=== PATIENT | male | born 1965 | race Two or more races ===

== ENCOUNTER 2024-05-13 14:30 | Outpatient (OUT) | payer BC, SELFPAY ==
--- NOTE | 2024-05-13 14:39 | ECG_ITS ---
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
--- NOTE | 2024-05-13 15:08 | P.GSHP_ITS ---
History of Present Illness History of Present Illness Chief complaint: Elevated PSA Narrative: Patient presents for preadmission testing. The patient states he had an elevated PSA followed by an abnormal prostate MRI. The patient states he did have some incomplete bladder emptying prior to starting Flomax but now has no complaints. He denies hematuria, dysuria, fever, abdominal plain, or any other complaints. Review of Systems ROS Narrative REVIEW OF SYSTEMS: Negative except as stated in HPI, ten or more systems reviewed. Constitutional: No fever, chills, weakness ENT: No sore throat or epistaxis Cardiovascular: No edema, chest pain, palpitations, or activity intolerance Respiratory: No shortness of breath, cough, or wheezing Musculoskeletal: No joint pain or swelling Gastrointestinal: No abdominal pain, constipation, diarrhea, or vomiting Genitourinary: No dysuria or hematuria Neurological: No numbness, tingling, weakness, or headache Psychiatric: No mood changes [facility] History (Updated 05/13/24 @ 14:55 by Kerri Richey NP) Rectal bleeding ?K62.5 - Hemorrhage of anus and rectum (ICD-10) Pneumonia ?J18.9 - Pneumonia, unspecified organism (ICD-10) Varicose vein of leg ?I83.90 - Asymptomatic varicose veins of unspecified lower extremity (ICD-10) Anemia ?D64.9 - Anemia, unspecified (ICD-10) Hyperlipidemia ?E78.5 - Hyperlipidemia, unspecified (ICD-10) Impacted cerumen ?H61.20 - Impacted cerumen, unspecified ear (ICD-10) Fasting hyperglycemia ?R73.01 - Impaired fasting glucose (ICD-10) Erectile dysfunction ?N52.9 - Male erectile dysfunction, unspecified (ICD-10) BPH with obstruction/lower urinary tract symptoms ?N40.1 - Benign prostatic hyperplasia with lower urinary tract symptoms (ICD- 10) ?N13.8 - Other obstructive and reflux uropathy (ICD-10) Hypertension ?I10 - Essential (primary) hypertension (ICD-10) Elevated PSA ?R97.20 - Elevated prostate specific antigen [PSA] (ICD-10) Surgical History (Updated 05/13/24 @ 14:46 by Kerri Richey NP) H/O colonoscopy ?Z98.890 - Other specified postprocedural states (ICD-10) Family History (Updated 05/13/24 @ 14:55 by Kerri Richey NP) Other Atrial fibrillation Family history of diabetes mellitus Family history of hypertension Family history of prostate cancer Family history of stroke Social History (Updated 05/13/24 @ 14:51 by Kerri Richey NP) Within the past year, how often did you have a drink containing alcohol: never Score interpretation: A score less than 4 is consistent with normal alcohol consumption. 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 Highest level of school completed/degree received: Associate degree: occup ational, technical, vocational program Meds Home Medications and Allergies Home Medications ?Medication ?Instructions ?Recorded ?Confirmed ?Type ascorbic acid (vitamin C) 1,000 mg 1 g PO .every other day 05/13/24 05/13/24 History capsule aspirin 81 mg tablet,delayed 81 mg PO .every other day 05/13/24 05/13/24 History release (Adult Aspirin Regimen) bisoprolol 10 1 tab PO DAILY 05/13/24 05/13/24 History mg-hydrochlorothiazide 6.25 mg tablet ferrous sulfate 134 mg (27 mg 134 mg PO .every other day 05/13/24 05/13/24 History iron) tablet tamsulosin 0.4 mg capsule 0.4 mg PO Q24H 05/13/24 05/13/24 History Allergies Allergy/AdvReac Type Severity Reaction Status Date / Time No Known Drug Allergies Allergy Verified 05/13/24 14:48 Exam Narrative Exam Narrative: Constitutional: Awake, alert, comfortable, well-appearing, nontoxic, interactive, vital signs as charted Head: Normocephalic, atraumatic Neck: Supple, normal appearance, normal range of motion, no meningeal signs, no lymphadenopathy Respiratory: No respiratory distress, breath sounds clear Cardiovascular: Regular rate and rhythm, strong and regular heart tones Abdomen: Nontender, normal bowel sounds, soft, no CVA tenderness Musculoskeletal: Normal gait, no swelling or edema Skin: No rashes or induration, no lesions, only visible skin inspected Neuro: No neurological deficits, normal sensation Psychiatric: Oriented ?3, normal affect Assessment and Plan Assessment and Plan (1) BPH with obstruction/lower urinary tract symptoms: (2) Elevated PSA: Plan Transrectal biopsy of prostate scheduled with Dr. Dewitt May 21, 2024.
[2024-05-13 15:24] LABS: Basophils Percent Auto 0.5 % (0.2-2.0); Eosinophils Absolute Auto 0.1 10^3/uL (0.0-0.7); Eosinophils Percent Auto 1.2 % (0.9-7.0); Hematocrit 45.7 % (42.0-54.0); Hemoglobin 15.2 g/dL (14.0-18.0); Immature Granulocytes Abs Auto 0.01 10^3/uL (0.00-0.03); Immature Granulocytes Pct Auto 0.2 % (0.0-0.5); Lymphocytes Absolute Auto 1.5 10^3/uL (1.2-3.8); Lymphocytes Percent Auto 24.5 % (20.5-60.0); Mean Corpuscular HGB Conc 33.3 g/dL (29.9-35.2); Mean Corpuscular Hemoglobin 29.1 pg (25.9-34.0); Mean Corpuscular Volume 87.4 fL (80.0-94.0); Mean Platelet Volume 9.8 fL (9.5-13.5); Monocytes Absolute Auto 0.5 10^3/uL (0.3-0.8); Monocytes Percent Auto 8.9 % (1.7-12.0); Neutrophils Absolute Auto 3.9 10^3/uL (1.4-6.5); Neutrophils Percent Auto 64.7 % (43.0-75.0); Platelet Count 185 10^3/uL (150-450); Red Blood Count 5.23 10^6/uL (4.70-6.10)
[2024-05-13 15:25] LABS: Anion Gap 9.8; BUN Creatinine Ratio 17.9; Calcium 9.1 mg/dL (8.5-10.1); Carbon Dioxide 29.2 mmol/L (21.0-32.0); Chloride 101 mmol/L (98-107); Estimated GFR (African America >60 (>=60); Estimated GFR (Non-African Ame >60 (>=60); Glucose 92 mg/dL (74-106); Sodium 136 mmol/L (136-145)
[2024-05-13 16:10] LABS: INR 0.97; Prothrombin Time 10.3 sec (9.0-11.6)
== END 2024-05-13 14:31 | disposition home or self-care (01) ==
LOC: PST 14:34
PROVIDERS: PCP Family Medicine; Visit Provider Urology
DX: Z01.810 Encounter for preprocedural cardiovascular examination (principal); Z01.812 Encounter for preprocedural laboratory examination; Z01.818 Encounter for other preprocedural examination; R97.20 Elevated prostate specific antigen [PSA]
CPT/HCPCS: 36415; 80048; 85025; 85610; 85730; 93005; G0463

== ENCOUNTER 2024-05-21 08:18 | Day surgery (SDC) | payer BC, SELFPAY ==
[2024-05-13 15:04] VITALS: BP 135/79; PULSE 59; TEMP 36.3; O2SAT 98; BMI 28.0
[2024-05-21 08:38] VITALS: BP 146/90; PULSE 59; TEMP 35.8; O2SAT 99; BMI 27.7
[2024-05-21] MEDS: LACTATED RINGER'S SOLUTION 1,000 ML 50 ML IV (08:47)
--- NOTE | 2024-05-21 09:40 | US_ITS ---
The [address] [address] Patient Name: SHAD SHAW MRN: [id number] date: 1965 Sex: M Assigned Patient Location: [facility] Current Patient Location: Accession/Order Number: [id number] Exam Date: 05/21/2024 10:30 Report Date: 05/21/2024 11:59 At the request of: ALICIA JUSTICE Procedure: US prostate EXAMINATION: US prostate HISTORY: elevated PSA COMPARISON: No relevant comparison available. TECHNIQUE: Ultrasound exam for the prostate with an endorectal transducer was performed utilizing real-time and color duplex Doppler sonography. FINDINGS: Transrectal images from a prostate biopsy. The prostate gland is markedly enlarged in size measuring 6.2 x 4.3 x 5.9 cm with volume of 80.8 mL. Lobular contour with no focal mass. A few scattered areas of hyperechogenicity likely calcification. A needle is seen traversing multiple portions of the prostate gland. US/US prostate IMPRESSION: Images from transrectal prostate biopsy Electronically authenticated by: FARAZ MOTA Date: 05/21/2024 11:59
[2024-05-21] MEDS: CEFTRIAXONE 1,000 MG in 0.9 % SODIUM CHLORIDE 50 ML 100 MG IV (10:11)
[2024-05-21] MEDS: LIDOCAINE 2% JELLY 10 ML UR (10:31)
[2024-05-21] MEDS: LIDOCAINE HCL 1% 200 MG/20 ML MDV INJ (10:40)
[2024-05-21 10:48] VITALS: BP 106/51; PULSE 59; TEMP 36.9; O2SAT 97
--- NOTE | 2024-05-21 10:55 | P.URON_ITS ---
Urology Surgery Operative Note Operative Note Procedure Date: 05/21/24 Time Out Performed: yes Pre-op Diagnosis: 1. Elevated PSA Post-op Diagnosis: same as pre-op Procedures performed: 1. Transrectal ultrasound guided prostate needle biopsy 2. Transrectal ultrasound of prostate and seminal vesicles 3. Nerve block of prostate Anesthesia: MAC (Dr. Baird ) Primary Surgeon: Nanda Dewitt Complications: none Estimated blood loss (mL): 0 Findings: No hyper/hypoechoic lesions in the prostate. SVs wnl. ADRIAN benign, right apex-mid soft lobule Standard 12 core prostate biopsy Volume 80.9 cc (6.2 x 4.3 x 5.8 cm) Specimens: 1. Left base lateral 2. Left base medial 3. Left mid lateral 4. Left mid medial 5. Left apex lateral 6. Left apex medial 7. Right base lateral 8. Right base medial 9. Right mid lateral 10. Right mid medial 11. Right apex lateral 12. Right apex medial Indications for Procedures: 59 year old male with history of elevated PSA 4.1, 19.5% free on 02/01/2024 (4.7 in 07/2023). MP-MRI prostate 04/29/24 negative. Prostate volume 97 ml. After discussion of risks/benefits of management options and biopsy approaches, he elected to proceed with transrectal prostate biopsy under MAC. Risks were discussed to include but not limited to bleeding, pain, infection, damage to surrounding structures, hematuria, difficulty urinating, and need for additional procedures. Detailed description of Procedure: After informed consent was obtained, the patient was brought to the operating suite and transferred onto the operating table in supine position. He received the appropriate dose of preoperative IV antibiotics (Ceftriaxone 1 g). MAC anesthesia was induced. He was positioned in the left lateral decubitus position and the appropriate pressure points padded, prepped and draped in the usual fashion for this procedure. An operative timeout was performed confirming the patient's identity, procedure and safety checks. Lidocaine gel was inserted per rectum. ADRIAN was performed with findings as above. A well lubricated transrectal ultrasound probe was inserted into the rectum and the prostate was aligned. The gland was visualized fully in axial and sagittal views to allow for identification of anatomy, volume and location of the urethra as noted in findings. Local anesthetic was applied to SV/prostate junction bilaterally for periprostatic block for pain control during and after procedure. Standard 12 core needle biopsy was obtained in the typical systematic template including the lateral and medial aspects of the prostate base, mid and apex of the left and right lobes, respectively. The ultrasound probe was removed and the rectum was cleaned. No evidence of rectal bleeding. The patient tolerated the procedure well and was sent to PACU in stable condition. Plan: Follow up in 1-2 weeks for pathology review. Post op abx provided. Pt advised to present to ER for fever, chills, inability to void, excessive bl eeding.
[2024-05-21 11:03] VITALS: BP 137/79; PULSE 54; O2SAT 99
[2024-05-21 11:18] VITALS: BP 138/81; PULSE 58; O2SAT 99
--- NOTE | 2024-05-21 11:37 | PC.NURSE ---
large amount of yellow urine with some blood
== END 2024-05-21 11:23 | disposition home or self-care (01) ==
PROVIDERS: PCP Family Medicine; Visit Provider Urology
PROC: (CPT 902; principal; 2024-05-21 09:30)
DX: R97.20 Elevated prostate specific antigen [PSA] (principal); E78.2 Mixed hyperlipidemia; N40.1 Benign prostatic hyperplasia with lower urinary tract symptoms; R73.01 Impaired fasting glucose; I10 Essential (primary) hypertension
CPT/HCPCS: 55700; 36415; 76872; J0696; J2250; J2704